=== PATIENT | male | born 1990 | race Caucasian/White ===

== ENCOUNTER 2025-02-17 15:26 | Outpatient (CLI) | payer BC, SELFPAY ==
--- NOTE | ~2025-02-17 | MR_ITS ---
MRI of the right knee Clinical history: Pain Technique: Coronal proton density and proton density-weighted images, sagittal proton-density and T2 fat-sat images, and axial proton-density fat-saturated images were acquired. Findings: Anterior and posterior cruciate ligaments are intact. Medial collateral ligament and the la teral collateral ligament complex are intact. Popliteus tendon is intact. Medial and lateral menisci are intact, without evidence of tear. There is focal grade 4 chondral lesion at the lateral tibial plateau with associated subchondral reac tive marrow edema in this region. Remaining articular cartilage is well preserved throughout the knee . Remaining bone marrow signals are unremarkable. Extensor mechanism is intact. No significant joint effusion or Mead's cyst. There is a ganglion cyst posterior to the distal femur measuring 2.4 x 1.3 x 3.3 cm. Impression: Focal grade 4 chondral lesion of the lateral tibial plateau with subchondral reactive marrow edema in this region. 2.4 x 1.3 x 3.3 cm probable ganglion cyst posterior to the distal femur medially. Reviewed, dictated and finalized at [facility]. Impression: Focal grade 4 chondral lesion of the lateral tibial plateau with subchondral re active marrow edema in this region. 2.4 x 1.3 x 3.3 cm probable ganglion cyst posterior to the distal femur mediall y.
== END 2025-02-17 15:27 | disposition home or self-care (01) ==
LOC: GOSHIMG 15:28
PROVIDERS: PCP Family Medicine Sports Medicine; Visit Provider Family Medicine Sports Medicine
DX: M25.561 Pain in right knee (principal)
CPT/HCPCS: 73721